=== PATIENT | male | born 1985 | race Hispanic/Latino ===

== ENCOUNTER 2018-06-26 14:45 | Emergency (ER) | payer SELFPAY ==
--- NOTE | 2018-06-26 16:09 | RAD ---
CHEST ONE VIEW: 06/26/18 HISTORY: Hematuria. FINDINGS: The cardiac silhouette is magnified by projection. Pulmonary vasculature is unremarkable. Mediastinum is midline. No confluent air space consolidation or evidence of pneumothorax. The cardiac rehabilitation program director le ads overlie the chest. IMPRESSION: No active cardiopulmonary abnormalities are demonstrated. POS: YONGH
[2018-06-26 16:12] LABS: Base Excess-Venous 2.2 mmol/L (0 (+/- 2.5)); Bicarbonate (HCO3v) 28.2 mmol/L (22.0-29.0); CO2 Tension (PvCO2) 47.3 mmHg (41.0-51.0); Calcium, Ionized 1.16 mmol/L (1.12-1.32); Hemoglobin - Calc 16.3 g/dL (12.0-18.0); O2 Tension (PvO2) 35.1 mmHg (35.0-45.0); T. Carbon Dioxide 29.6 mmol/L (1.0-85.0); pH (Venous) 7.384 (7.35-7.45); vO2 Saturation-calc 65.8 % (94-98)
[2018-06-26 16:16] LABS: #Basophils 0.1 thou/uL (0.0-0.2); #Eosinphils 0.3 thou/uL (0.0-0.7); #Lymphocytes 3.9 thou/uL (1.20-3.40); #Monocytes 0.7 thou/uL (0.11-0.59); #Neutrophils 6.6 thou/uL (1.40-6.50); %Basophils 0.9 % (0.0-1.0); %Eosinophils 2.2 % (0.0-10.0); %Lymphocytes 33.5 % (21.0-51.0); %Monocytes 6.3 % (0.0-10.0); %Neutrophils 57.1 % (42.0-75.0); Hemoglobin 15.4 g/dL (14.0-18.0); Mean Corpuscular HGB CONC 33.5 g/dL (32.0-36.0); Mean Corpuscular Hemoglobin 31.4 pg (27.0-31.0); Mean Corpuscular Volume 93.6 fL (78.0-98.0); Mean Platelet Volume 8.8 fL (7.4-10.4); Platelet Count 334 thou/uL (130-400); Red Blood Cell (RBC) Count 4.91 mill/uL (4.70-6.10); White Blood Cell (WBC) Count 11.6 thou/uL (4.8-10.8)
[2018-06-26 16:45] LABS: ALT (SGPT) 28 U/L (8-55); AST (SGOT) 17 U/L (5-34); Albumin 4.6 g/dL (3.5-5.0); Alkaline Phosphatase 85 U/L (40-150); Anion Gap 14 mmol/L (10-20); BUN (Urea Nitrogen) 8 mg/dL (8.9-20.6); Bilirubin, Total 0.5 mg/dL (0.2-1.2); Calc. Creatinine Clearance 0 mL/min (70-130); Calcium 10.2 mg/dL (7.8-10.44); Carbon Dioxide 27 mmol/L (22-29); Chloride 97 mmol/L (98-107); Estimated GFR-MDRD Greater than 90; Glucose 386 mg/dL (70-105); Lipase 57 U/L (8-78); Potassium 4.3 mmol/L (3.5-5.1); Protein, Total 7.6 g/dL (6.0-8.3); Sodium 134 mmol/L (136-145)
[2018-06-26] MEDS ORDERED: Insulin Regular 300 UNITS/3 ML VIAL ONE (18:28)
--- NOTE | 2018-06-28 13:50 | EKG ---
Test Reason : Blood Pressure : / mmHG Vent. Rate : 070 BPM Atrial Rate : 070 BPM P-R Int : 182 ms QRS Dur : 080 ms QT Int : 366 ms P-R-T Axes : 058 036 022 degrees QTc Int : 395 ms Normal sinus rhythm Early repolarization Normal ECG Confirmed by AMENA LY ([id number]), assignment editor SOLOMON HUDSON ([id number]) on 06/28/2018 1:49:42 PM Referred By: Confirmed By:AMENA LY
== END 2018-06-26 19:22 | disposition home or self-care (01) ==
LOC: ERS 14:45
DX: E11.65 Type 2 diabetes mellitus with hyperglycemia (principal); F17.210 Nicotine dependence, cigarettes, uncomplicated
CPT/HCPCS: 36416; 71045; 80053; 82330; 82803; 83605; 83690; 84484; 85025; 93005; 96360; J1815

== ENCOUNTER 2018-11-22 09:59 | Inpatient (IN) | payer SELFPAY ==
[2018-11-22] MEDS ORDERED: Ondansetron ODT 4 MG TAB ONE (10:07)
[2018-11-22] MEDS ORDERED: Insulin Regular 300 UNITS/3 ML VIAL ONE (10:19)
[2018-11-22] MEDS ORDERED: Ondansetron PF 4 MG/2 ML Vial ONE (10:19)
[2018-11-22 10:37] LABS: Bicarbonate (HCO3v) 11.9 mmol/L (22.0-28.0); CO2 Tension (PvCO2) 34.9 mmHg (40.0-50.0); Calcium, Ionized 1.22 mmol/L (See Comments:); Chloride 111 mmol/L (98-107); Hemoglobin - Calc 20.6 g/dL (14.0-18.0); O2 Tension (PvO2) 34.3 mmHg (35.0-45.0); Potassium 4.4 mmol/L (3.5-5.1); Sodium 135 mmol/L (138-145); pH (Venous) 7.142 (7.320-7.430)
[2018-11-22 10:40] LABS: #Basophils 0.1 thou/uL (0.0-0.2); #Eosinphils 0.2 thou/uL (0.0-0.7); #Lymphocytes 1.7 thou/uL (1.20-3.40); #Monocytes 1.1 thou/uL (0.11-0.59); #Neutrophils 14.4 thou/uL (1.40-6.50); %Basophils 0.5 % (0.0-1.0); %Eosinophils 1.4 % (0.0-10.0); %Lymphocytes 9.6 % (21.0-51.0); %Monocytes 6.2 % (0.0-10.0); %Neutrophils 82.4 % (42.0-75.0); Hemoglobin 17.7 g/dL (14.0-18.0); Mean Corpuscular HGB CONC 30.9 g/dL (32.0-36.0); Mean Platelet Volume 8.7 fL (7.4-10.4); Platelet Count 364 thou/uL (130-400); RBC Distribution Width 12.4 % (11.5-14.5); Red Blood Cell (RBC) Count 5.72 mill/uL (4.70-6.10); White Blood Cell (WBC) Count 17.4 thou/uL (4.8-10.8)
[2018-11-22] MEDS ORDERED: Insulin Regular 100 units/100 ml in NS IVPB SCH (11:00)
[2018-11-22 11:03] LABS: ALT (SGPT) 29 U/L (8-55); AST (SGOT) 22 U/L (5-34); Albumin 5.1 g/dL (3.5-5.0); Alkaline Phosphatase 89 U/L (40-150); BUN (Urea Nitrogen) 16 mg/dL (8.9-20.6); Bilirubin, Total 0.2 mg/dL (0.2-1.2); Calc. Creatinine Clearance 0 mL/min (70-130); Chloride 105 mmol/L (98-107); Estimated GFR-MDRD 52; Globulin 3.3 g/dL (2.4-3.5); Glucose 473 mg/dL (70-105); Lipase 30 U/L (8-78); Magnesium 2.3 mg/dL (1.6-2.6); Phosphorus 5.5 mg/dL (2.3-4.7); Protein, Total 8.4 g/dL (6.0-8.3); Sodium 138 mmol/L (136-145)
[2018-11-22 11:08] LABS: Carbon Dioxide Less than 8 mmol/L (22-29)
[2018-11-22] MEDS ORDERED: NS 0.9% w/ 20 MEQ KCL 1,000 ML IV PRN ×2 (13:32)
[2018-11-22] MEDS ORDERED: Acetaminophen 325 MG TAB PO PRN (13:32)
[2018-11-22] MEDS ORDERED: Dextrose 5 %-0.45 % NaCl 1,000 ML IV PRN (13:32)
[2018-11-22] MEDS ORDERED: Bisacodyl 5 MG TAB PO PRN (13:32)
[2018-11-22] MEDS ORDERED: Ondansetron PF 4 MG/2 ML Vial IVP PRN (13:32)
[2018-11-22] MEDS ORDERED: Sodium Chloride 0.9% 1,000 ML IV PRN ×4 (13:32)
[2018-11-22] MEDS ORDERED: Acetaminophen 650 MG Suppository PR PRN (13:32)
[2018-11-22] MEDS ORDERED: CCU Electrolyte Replacement 1 EACH IVPB SCH (13:32)
[2018-11-22 13:38] LABS: Bilirubin Negative (Negative); Blood, Urine Negative (Negative); Clarity CLEAR (Clear); Glucose, Urine (Dipstick) >=1000 mg/dL (Negative); Leukocyte Negative (Negative); Nitrite Negative (Negative); Protein, Urine (Dipstick) Trace mg/dL (Neg-Trace); Urobilinogen 0.2 mg/dL (0.2-1.0)
[2018-11-22] MEDS ORDERED: Magnesium 2 GM/50 ML 2 GM in Premix Bag 1 BAG IVPB PRN (13:42)
[2018-11-22] MEDS ORDERED: Potassium Chloride 40 MEQ in Premix Bag 1 BAG IVPB PRN (13:42)
[2018-11-22] MEDS ORDERED: PHOS-NAK 1 PKT PACK PO PRN ×2 (13:42)
[2018-11-22] MEDS ORDERED: Potassium Phosphate 12 MMOL in Sodium Chloride 0.9% 250 ML 250 ML IV PRN (13:42)
[2018-11-22] MEDS ORDERED: Magnesium Oxide 400 MG TAB PO PRN ×2 (13:42)
[2018-11-22] MEDS ORDERED: Potassium Chloride 40 MEQ in Sodium Chloride 0.9% 250 ML 250 ML IVPB PRN (13:42)
[2018-11-22] MEDS ORDERED: Potassium Phosphate 15 MMOL in Sodium Chloride 0.9% 250 ML 250 ML IV PRN (13:42)
[2018-11-22] MEDS ORDERED: Potassium Chloride 20 MEQ TAB PO PRN (13:42)
[2018-11-22] MEDS ORDERED: CCU ELECTROLYTE REPLACEMENT PROTOCOL FS PRN (13:42)
[2018-11-22] MEDS ORDERED: Potassium Phosphate 9 MMOL in Sodium Chloride 0.9% 100 ML IVPB PRN (13:42)
[2018-11-22] MEDS ORDERED: HUMULIN R 100 UNITS in Sodium Chloride 0.9% 100 ML IVPB SCH (13:45)
--- NOTE | 2018-11-22 13:47 | RAD ---
Chest AP view INDICATION: Nausea vomiting; concern for pneumonia COMPARISON: Prior exam dated June 26, 2018 FINDINGS: Lungs:The lungs are clear Cardiac silhouette pulmonary vasculature:The cardiomediastinal silhouette appears within normal limit s. Pleural spaces:No pleural effusion or pneumothorax is demonstrated. Upper abdomen:No abnormality seen. Osseous structures: No acute osseous abnormality. Additional findings:None. IMPRESSION: No acute cardiopulmonary abnormality.
--- NOTE | 2018-11-22 13:51 | HP ---
PRIMARY CARE PROVIDER: [facility] in [place]. CHIEF COMPLAINT: Vomiting. HISTORY OF PRESENT ILLNESS: Mr. Duncan is a pleasant 33-year-old gentleman, who was seen at [facility] on November 22, 2018. He reports that he was diagnosed with diabetes mellitus in June 2018. He takes metformin and glipizide at home. He is not on insulin. He reports that yesterday he started having nausea and vomiting. He could not keep his medication down. He has also not been eating since yesterday. He denies any abdominal pain. He denies any fevers or chills. He denies any chest pain. REVIEW OF SYSTEMS: All other systems reviewed and found to be negative. PAST MEDICAL HISTORY: Diabetes mellitus. PAST SURGICAL HISTORY: None. SOCIAL HISTORY: Occasional alcohol use, no tobacco use, or recreational drug use. PHYSICAL EXAMINATION: GENERAL: On examination, Mr. Duncan is awake and alert, not in acute distress. VITAL SIGNS: Blood pressure is 118/67, pulse 72, respiratory rate 24, and oxygen saturation 99% on room air. He is afebrile. EYES: No scleral icterus, no conjunctival pallor. ENT: Dry mucosal membranes. No oropharyngeal erythema or exudates. NECK: Supple, nontender, trachea is midline. RESPIRATORY: Accessory muscles of breathing are not active. Chest wall movements are symmetric bilaterally. LUNGS: Clear to auscultation without wheeze, rhonchi, or crepitations. CARDIOVASCULAR: S1 and S2 are heard, regular. Peripheral pulses palpable. No carotid bruit. No pericardial rub. ABDOMEN: Soft, nontender, bowel sounds heard. NEUROLOGIC: Cranial nerves 2 through 12 are intact. MUSCULOSKELETAL: Power is 5/5 in all 4 extremities. SKIN: No rashes or subcutaneous nodules. LYMPHATIC: No cervical lymphadenopathy. PSYCHIATRIC: Normal mood, normal affect, the patient is oriented to person, place, and time. LABORATORY DATA: Mr. Duncan's labs and investigations were reviewed. He has leukocytosis with 17,400 white cells, of which 82% are neutrophils. Hemoglobin and platelet count are normal. He has hyponatremia with sodium 135, normal potassium, carbon dioxide less than 8, elevated creatinine of 1.54, normal blood urea nitrogen, normal ionized calcium, elevated phosphorus of 5.5, elevated albumin of 5.1, and normal troponin I. Beta-hydroxybutyrate is elevated at 7.57. ASSESSMENT AND PLAN: Mr. Duncan is a pleasant 33-year-old gentleman, who was seen at [facility] on November 22, 2018. His problem list includes: 1. Diabetic ketoacidosis: Mr. Duncan is presenting with diabetic ketoacidosis. This is in the context of inability to take his antidiabetic medications secondary to nausea and vomiting. He has carbon dioxide less than 8, therefore, anion gap could not be calculated. He will be admitted to the hospital on DKA protocol for intravenous fluids and intravenous insulin. 2. Hyponatremia: Mild, we will recheck. 3. Acute kidney injury: Likely secondary to diabetic ketoacidosis. We will hydrate the patient and recheck creatinine level. 4. Leukocytosis: Most likely secondary to nausea and vomiting. The patient is afebrile. If he spikes a fever, we will investigate for any evidence of infection. We will recheck white count. Many thanks for allowing me to participate in Mr. Duncan's care. Please feel free to contact me with any questions or concerns. LEVEL OF RISK: Moderate. LEVEL OF COMPLEXITY: Moderate. Job ID: [id number]
[2018-11-22 14:31] VITALS: BMI 22.6
[2018-11-22 14:47] LABS: Anion Gap 19 mmol/L (10-20); BUN (Urea Nitrogen) 14 mg/dL (8.9-20.6); Calc. Creatinine Clearance 113 mL/min (70-130); Calcium 8.9 mg/dL (7.8-10.44); Carbon Dioxide 11 mmol/L (22-29); Chloride 111 mmol/L (98-107); Estimated GFR-MDRD 90; Glucose 229 mg/dL (70-105); Potassium 4.1 mmol/L (3.5-5.1); Sodium 137 mmol/L (136-145)
[2018-11-22] MEDS: D5 1/2 NS w/20 mEq KCL 1,000 ML IV PRN ×2 (15:00→20:14)
[2018-11-22 18:17] LABS: Anion Gap 11 mmol/L (10-20); BUN (Urea Nitrogen) 14 mg/dL (8.9-20.6); Calc. Creatinine Clearance 109 mL/min (70-130); Calcium 8.5 mg/dL (7.8-10.44); Carbon Dioxide 17 mmol/L (22-29); Chloride 110 mmol/L (98-107); Estimated GFR-MDRD 86; Glucose 251 mg/dL (70-105); Potassium 3.7 mmol/L (3.5-5.1); Sodium 134 mmol/L (136-145)
[2018-11-22 22:08] LABS: Anion Gap 10 mmol/L (10-20); BUN (Urea Nitrogen) 14 mg/dL (8.9-20.6); Calc. Creatinine Clearance 113 mL/min (70-130); Calcium 8.8 mg/dL (7.8-10.44); Carbon Dioxide 19 mmol/L (22-29); Chloride 111 mmol/L (98-107); Estimated GFR-MDRD 90; Glucose 172 mg/dL (70-105); Potassium 3.5 mmol/L (3.5-5.1); Sodium 136 mmol/L (136-145)
[2018-11-23] MEDS: D5 1/2 NS w/20 mEq KCL 1,000 ML IV PRN ×3 (00:29→09:19)
[2018-11-23 05:48] LABS: Anion Gap 10 mmol/L (10-20); BUN (Urea Nitrogen) 12 mg/dL (8.9-20.6); Calc. Creatinine Clearance 124 mL/min (70-130); Calcium 8.6 mg/dL (7.8-10.44); Carbon Dioxide 17 mmol/L (22-29); Chloride 108 mmol/L (98-107); Estimated GFR-MDRD Greater than 90; Glucose 279 mg/dL (70-105); Potassium 4.1 mmol/L (3.5-5.1); Sodium 131 mmol/L (136-145)
[2018-11-23 08:42] LABS: #Basophils 0.1 thou/uL (0.0-0.2); #Eosinphils 0.1 thou/uL (0.0-0.7); #Lymphocytes 2.2 thou/uL (1.20-3.40); #Monocytes 1.5 thou/uL (0.11-0.59); #Neutrophils 7.8 thou/uL (1.40-6.50); %Basophils 0.7 % (0.0-1.0); %Eosinophils 0.9 % (0.0-10.0); %Lymphocytes 18.8 % (21.0-51.0); %Monocytes 13.1 % (0.0-10.0); %Neutrophils 66.5 % (42.0-75.0); Hemoglobin 12.8 g/dL (14.0-18.0); Mean Corpuscular HGB CONC 32.9 g/dL (32.0-36.0); Mean Corpuscular Volume 97.1 fL (78.0-98.0); Mean Platelet Volume 8.6 fL (7.4-10.4); Platelet Count 270 thou/uL (130-400); RBC Distribution Width 12.1 % (11.5-14.5); White Blood Cell (WBC) Count 11.7 thou/uL (4.8-10.8)
[2018-11-23 11:36] VITALS: TEMP 98.6
[2018-11-23] MEDS ORDERED: Dextrose 5% in Water 1,000 ML IV PRN (13:19)
[2018-11-23] MEDS ORDERED: Dextrose 50% Abboject 50 ML SYRINGE IVP PRN (13:19)
[2018-11-23] MEDS ORDERED: HumaLOG 300 UNITS/3 ML VIAL SC PRN ×2 (13:19)
[2018-11-23] MEDS ORDERED: Insulin Glargine 10 UNITS in Pre-Filled Syringe 1 EACH SC SCH (13:30)
--- NOTE | 2018-11-23 15:31 | PDOC.PN ---
- Subjective Encounter Start Date: 11/23/18 Encounter Start Time: 08:40 Pt seen for followup re: DKA. Feels better, no complaints. - Objective MAR Reviewed: Yes Vital Signs & Weight: Vital Signs (12 hours) Temp 11/23/18 15:21 98.6 F 11/23/18 11:36 98.6 F 11/23/18 07:05 98.1 F 11/23/18 04:00 97.3 F L Weight Weight 162 lb 8 oz Most Recent Monitor Data Heart Rate from ECG 70 NIBP 108/63 NIBP BP-Mean 78 Respiration from ECG 20 SpO2 97 I&O: 11/22/18 11/23/18 11/24/18 06:59 06:59 06:59 Intake Total 4868 2764.6 Output Total 1000 Balance 3868 2764.6 Result Diagrams: 11/23/18 04:14 11/23/18 04:14 Additional Labs: Accuchecks 11/23/18 11/23/18 11/23/18 13:02 12:16 11:16 POC Glucose 159 H 178 H 171 H 11/23/18 11/23/18 11/23/18 10:07 09:20 08:01 POC Glucose 175 H 161 H 218 H 11/23/18 11/23/18 11/23/18 06:44 05:06 04:15 POC Glucose 211 H 251 H 251 H 11/23/18 11/23/18 11/23/18 03:09 02:11 01:08 POC Glucose 243 H 233 H 116 H 11/23/18 11/22/18 11/22/18 00:05 23:02 22:02 POC Glucose 103 118 H 157 H 11/22/18 11/22/18 11/22/18 21:02 19:59 18:54 POC Glucose 192 H 204 H 236 H 11/22/18 11/22/18 11/22/18 18:07 17:06 16:05 POC Glucose 210 H 246 H 219 H EKG Reviewed by me: Yes (Tele: NSR) Phys Exam - Physical Examination Constitutional: NAD HEENT: moist MMs, sclera anicteric, oral pharynx no lesions, 2+ tonsils Neck: no nodes, no JVD, supple, full ROM Respiratory: clear to auscultation bilateral Cardiovascular: RRR, no rub S1, S2 Gastrointestinal: soft, non-tender, no distention, positive bowel sounds Neurological: moves all 4 limbs Psychiatric: normal affect, A&O x 3 Dx/Plan (1) DKA (diabetic ketoacidosis) Code(s): E11.10 - TYPE 2 DIABETES MELLITUS WITH KETOACIDOSIS WITHOUT COMA Status: Acute Comment: Improved, will discontinue insulin drip. Start accuchecks and insulin sliding scale. (2) Hyponatremia Code(s): E87.1 - HYPO-OSMOLALITY AND HYPONATREMIA Status: Acute Comment: mild, likely asymptomatic (3) LO (acute kidney injury) Code(s): N17.9 - ACUTE KIDNEY FAILURE, UNSPECIFIED Status: Resolved - Plan * . Review of Systems - Review of Systems Constitutional: negative: fever, chills, sweats, weakness, malaise Respiratory: negative: Cough, Shortness of Breath, SOB with Excertion, Pleuritic Pain, Wheezing Cardiovascular: negative: chest pain, palpitations, orthopnea, paroxysmal nocturnal dyspnea, edema, light headedness Gastrointestinal: negative: Nausea, Vomiting, Abdominal Pain, Diarrhea, Constipation, Melena, Hematochezia Genitourinary: negative: Dysuria, Frequency, Incontinence, Hematuria, Retention - Medications/Allergies Allergies/Adverse Reactions: Allergies Allergy/AdvReac Type Severity Reaction Status Date / Time No Known Allergies Allergy Verified 11/22/18 14:32 Medications: Current Medications Acetaminophen (Tylenol) 650 mg PO Q4H PRN PRN Reason: Headache/Fever/Mild Pain (1-3) Last Admin: 11/22/18 20:13 Dose: 650 mg Acetaminophen (Tylenol) 650 mg NE Q4H PRN PRN Reason: Headache/Fever/Mild Pain (1-3) Bisacodyl (Dulcolax) 10 mg PO DAILYPRN PRN PRN Reason: Constipation Dextrose/Water (Dextrose 50%) 25 gm IVP PRN PRN PRN Reason: HYPOGLYCEMIA PROTOCOL Glucagon (Glucagon) 1 mg IM PRN PRN PRN Reason: HYPOGLYCEMIA PROTOCOL Dextrose/Sodium Chloride (D5 1/2 Ns) 1,000 mls @ 250 mls/hr IV .Q4H PRN; Protocol PRN Reason: Step 4 of DKA Protocol Potassium Chloride/Dextrose/Sod Cl (D5 1/2 Ns W/20 Meq Kcl) 1,000 mls @ 250 mls /hr IV .Q4H PRN; Protocol PRN Reason: Step 4 of DKA Protocol Last Admin: 11/23/18 09:19 Dose: 1,000 mls Sodium Chloride (Normal Saline 0.9%) 1,000 mls @ 500 mls/hr IV .Q2H PRN; Protocol PRN Reason: Step 1 of DKA Protocol Sodium Chloride (Normal Saline 0.9%) 1,000 mls @ 1,000 mls/hr IV .Q1H PRN; Protocol PRN Reason: Step 1 of DKA Protocol Sodium Chloride (Normal Saline 0.9%) 1,000 mls @ 250 mls/hr IV .Q4H PRN; Protocol PRN Reason: SEE STEP 3 OF DKA PROTOCOL Sodium Chloride (Normal Saline 0.9%) 1,000 mls @ 500 mls/hr IV .Q2H PRN; Protocol PRN Reason: Step 2 of DKA Protocol Potassium Chloride/Sodium Chloride (Ns 0.9% W/ 20 Meq Kcl) 1,000 mls @ 500 mls/ hr IV .Q2H PRN; Protocol PRN Reason: Step 2 of DKA Protocol Potassium Chloride/Sodium Chloride (Ns 0.9% W/ 20 Meq Kcl) 1,000 mls @ 250 mls/ hr IV .Q4H PRN; Protocol PRN Reason: SEE STEP 3 OF DKA PROTOCOL Potassium Chloride 40 meq/ (Sodium Chloride) 270 mls @ 135 mls/hr IVPB ASDIR PRN PRN Reason: FOR SERUM K+ 2.5 - 3.5 Potassium Chloride 40 meq/ (Device) 100 mls @ 50 mls/hr IVPB ASDIR PRN PRN Reason: FOR SERUM K+ 2.5 - 3.5 Magnesium Sulfate 1 gm/ Sodium (Chloride) 102 mls @ 102 mls/hr IV PRN PRN PRN Reason: MAG LEVEL 1.4 - 2.0 Magnesium Sulfate 2 gm/ Device 50 mls @ 50 mls/hr IVPB ASDIR PRN PRN Reason: MAGNESIUM < 1.4 Potassium Phosphate 9 mmol/ (Sodium Chloride) 103 mls @ 25.75 mls/hr IVPB ASDIR PRN PRN Reason: Phosphate 1.0-1.8 Potassium Phosphate 12 mmol/ (Sodium Chloride) 254 mls @ 63.5 mls/hr IV ASDIR PRN PRN Reason: Serum phosphate 0.5-0.9 Potassium Phosphate 15 mmol/ (Sodium Chloride) 255 mls @ 63.75 mls/hr IV ASDIR PRN PRN Reason: Serum Phos < 0.5 Dextrose/Water (D5w) 1,000 mls @ 0 mls/hr IV INF PRN PRN Reason: HYPOGLYCEMIA PROTOCOL Insulin Human Lispro (Humalog) 0 units SC .MILD SLIDING SCALE PRN; Protocol PRN Reason: MILD SLIDING SCALE Insulin Human Lispro (Humalog) 0 units SC .BEDTIME SLIDING SC PRN; Protocol PRN Reason: BEDTIME SLIDING SCALE Magnesium Oxide (Magnesium Oxide) 400 mg PO BIDPRN PRN PRN Reason: FOR SERUM MAG 1.4 - 2.0 Magnesium Oxide (Magnesium Oxide) 800 mg PO PRN PRN PRN Reason: FOR SERUM MAG < 1.4 Miscellaneous Medication (Ccu Electrolyte Replacement) 1 each IVPB ONE KESHA Stop: 12/22/18 13:33 Miscellaneous Medication (Phos-Nak) 1 pkt PO TIDPRN PRN PRN Reason: FOR PHOS LEVEL 1.0 - 1.8 Miscellaneous Medication (Phos-Nak) 2 pkt PO TIDPRN PRN PRN Reason: FOR PHOS LEVEL 0.5 - 1.0 Ccu Electrolyte (Replacement Protocol) 0 each FS PRN PRN PRN Reason: FOR ELECTROLYTE REPLACEMENT Ondansetron HCl (Zofran) 4 mg IVP Q6H PRN PRN Reason: Nausea/Vomiting Potassium Chloride (K-Dur) 40 meq PO ASDIR PRN PRN Reason: FOR SERUM K+ 2.5 - 3.5 Potassium Chloride (Klor-Con) 40 meq PER TUBE ASDIR PRN PRN Reason: FOR SERUM K+ 2.5-3.5 Sodium Chloride (Flush - Normal Saline) 10 ml IVF Q12HR KESHA Last Admin: 11/23/18 09:20 Dose: 10 ml Sodium Chloride (Flush - Normal Saline) 10 ml IVF PRN PRN PRN Reason: Saline Flush
[2018-11-23 16:15] LABS: Anion Gap 13 mmol/L (10-20); BUN (Urea Nitrogen) 7 mg/dL (8.9-20.6); Calc. Creatinine Clearance 147 mL/min (70-130); Calcium 8.8 mg/dL (7.8-10.44); Carbon Dioxide 18 mmol/L (22-29); Chloride 108 mmol/L (98-107); Estimated GFR-MDRD Greater than 90; Glucose 189 mg/dL (70-105); Potassium 3.7 mmol/L (3.5-5.1); Sodium 135 mmol/L (136-145)
[2018-11-23] MEDS ORDERED: metFORMIN 500 MG TAB PO SCH (17:45)
[2018-11-23] MEDS ORDERED: Pioglitazone HCl 15 MG TAB PO SCH (17:45)
--- NOTE | 2018-11-24 02:11 | DIS ---
DATE OF ADMISSION: 11/22/2018 DATE OF DISCHARGE: 11/23/2018 PRIMARY CARE PROVIDER: [facility]. DISCHARGE DIAGNOSES: 1. Diabetic ketoacidosis. 2. Hyponatremia. 3. Acute kidney injury. CONDITION OF PATIENT ON THE DAY OF DISCHARGE: Stable. I assessed Mr. Duncan on the day of discharge. Please refer to my hospitalist progress note dated 11/23/2018, for further details. DISCHARGE MEDICATIONS: 1. Metformin 500 mg 2 times a day. 2. Actos 15 mg daily. HOSPITAL COURSE: Mr. Duncan is a pleasant 33-year-old gentleman, who was admitted to [facility] for diabetic ketoacidosis on 11/22/2018, because he could not tolerate oral medications secondary to nausea and vomiting. Please refer to my history and physical note dated 11/22/2018, for further details. He was admitted to the [facility]. He was treated with intravenous fluids and insulin. Anion gap closed. He is tolerating diet. Acute kidney injury also resolved. He is being discharged home in a stable condition. He will follow up with his primary care provider tomorrow for ongoing management of diabetes mellitus. On the day of discharge, he has sodium 135, potassium 3.7, creatinine 0.73, white count 11,700, hemoglobin 12.8, and platelet count 270,000. Many thanks for allowing me to participate in your patient's care. Please feel free to contact me with any questions or concerns. DISCHARGE DESTINATION: Home. TOTAL AMOUNT OF TIME SPENT COORDINATING THIS DISCHARGE: 31 minutes. Job ID: [id number]
== END 2018-11-23 18:47 | disposition home or self-care (01) | DRG 638 ==
LOC: ERS 09:59 → IMCU/EMU 13:45
PROVIDERS: ADMIT Internal Medicine; ATTEND Internal Medicine
DX: E11.10 Type 2 diabetes mellitus with ketoacidosis without coma (principal); N17.9 Acute kidney failure, unspecified; E87.1 Hypo-osmolality and hyponatremia; D72.829 Elevated white blood cell count, unspecified; Z79.84 Long term (current) use of oral hypoglycemic drugs
CPT/HCPCS: 36415; 36416; 71045; 80048; 81003; 82010; 82330; 82803; 83690; 83735; 84100; 84484; 85025; 90471; 90732; 93005; G0009; J1815; J1825; J2405; J3490; Q0162